=== PATIENT | male | born 1970 | race Caucasian/White ===

== ENCOUNTER 2023-04-09 19:44 | Emergency (ER) | payer OTHER, SELFPAY ==
[2023-04-09 19:56] VITALS: BP 102/62; PULSE 59; RESP 16; TEMP 36.8; O2SAT 94; BMI 39.9
--- NOTE | 2023-04-09 20:29 | ED.LOWEXIN ---
HPI - Extremity Injury (Lower) General Date Seen: 04/09/23 Chief Complaint: Extremity Pain/Injury, Lower Stated Complaint: lukemia, has on open wound on leg Time Seen by Provider: 04/09/23 19:57 Source: patient and family Mode of arrival: ambulatory Limitations: no limitations History of Present Illness HPI Narrative: Patient is a very nice 53-year-old gentleman is being treated for acute myelogenous leukemia. He banged his right silver approximately 2 weeks ago and they were putting a dressing on there, he has noted the last 24-48 hours that thing redness has increased he has no pain with the, denies any fevers chills but is worried about infection, he is on Bactrim Monday and also acyclovir. For prophylaxis. Related Data Home Medications Medication Instructions Recorded Confirmed acyclovir 400 mg tablet 400 mg PO 04/09/23 albuterol sulfate 2.5 mg/3 mL 1 Q6H 04/09/23 (0.083 %) solution for nebulization carvedilol 12.5 mg tablet 12.5 mg PO BID 04/09/23 04/09/23 dapagliflozin propanediol 10 mg 10 mg PO DAILY 04/09/23 04/09/23 tablet (Farxiga) furosemide 40 mg tablet 40 mg PO BID 04/09/23 04/09/23 lidocaine-prilocaine 2.5 %-2.5 % 5 g topical 04/09/23 topical cream nitroglycerin 0.4 mg sublingual mg sublingual 04/09/23 tablet ondansetron 8 mg disintegrating 8 mg PO Q8H PRN nausea/vomiting 04/09/23 04/09/23 tablet rosuvastatin 20 mg tablet 20 mg PO QPM 04/09/23 04/09/23 sacubitril 97 mg-valsartan 103 mg 1 tab PO BID 04/09/23 04/09/23 tablet (Entresto) spironolactone 25 mg tablet 25 mg PO DAILY 04/09/23 04/09/23 sulfamethoxazole 800 1 tab PO 04/09/23 mg-trimethoprim 160 mg tablet triamcinolone acetonide 0.1 % applic topical 3XD PRN 04/09/23 topical cream venetoclax 100 mg tablet PO 04/09/23 (Venclexta) voriconazole 200 mg tablet 200 mg PO BID 04/09/23 04/09/23 Allergies Allergy/AdvReac Type Severity Reaction Status Date / Time No Known Drug Allergies Allergy Verified 04/09/23 20:04 Review of Systems Status of ROS: Reports: 10 or more systems reviewed and unremarkable except as noted in History and below [facility] Social History Smoking Status: Never smoker Do you use any of these nicotine containing products: None How often do you have a drink containing alcohol: never How often do you have six or more drinks on one occasion: Never AUDIT-C Alcohol total score: 0 Non-prescribed substance use: denies use Exam Narrative: Exam Narrative: On examination is right silver shows an erythematous area, outside of where [place] is [place] on his tibia. There is no bleeding, there is a little bit of oozing. The whole area is approximately 6-7 cm circular, with an overlying area redness. No tenderness is noted, calf shows no tenderness to palpation and there is no edema normal pulses are noted in his DP and posterior tibial. I do not suspect a foreign body in either fracture as he is walking on it. Const: Vital Signs, click to edit/add: Vital Signs - 24 hr 04/09/23 19:56 Temperature 98.3 F Pulse Rate [Right Pulse Oximeter] 59 L Respiratory Rate 16 Blood Pressure [Ri ght Upper Arm] 102/62 Pulse Oximetry 94 Oxygen Delivery Me thod Room Air Documenting provider has reviewed patient's vital signs: yes Course Course ED Course: I think it would be reasonable to cover him for cellulitis here. He will continue using Polysporin ointment, and a non adherent dressing, we will put him on Keflex 3 times a day, and have him hold his Bactrim at this point. Vital Signs Vital signs: Initial Vital Signs Temperature 98.3 F 04/09/23 19:56 Temperature Source Oral 04/09/23 19:56 Pulse Rate 59 L 04/09/23 19:56 Respiratory Rate 16 04/09/23 19:56 Blood Pressure 102/62 04/09/23 19:56 Blood Pressure Mean 75 04/09/23 19:56 Blood Pressure Position Sitting 04/09/23 19:56 Pulse Oximetry 94 04/09/23 19:56 Oxygen Delivery Method Room Air 04/09/23 19:56 Vital Signs Temperature 98.3 F 04/09/23 19:56 Pulse Rate 59 L 04/09/23 19:56 Respiratory Rate 16 04/09/23 19:56 Blood Pressure 102/62 04/09/23 19:56 Pulse Oximetry 94 04/09/23 19:56 Oxygen Delivery Method Room Air 04/09/23 19:56 Temperature 98.3 F 04/09/23 19:56 Pulse Rate 59 L 04/09/23 19:56 Respiratory Rate 16 04/09/23 19:56 Blood Pressure 102/62 04/09/23 19:56 Pulse Oximetry 94 04/09/23 19:56 Oxygen Delivery Method Room Air 04/09/23 19:56 Discharge Plan Discharge Clinical Impression: Cellulitis Patient Disposition: Home w/ Parent or Adult Condition: Stable Instructions: Cellulitis (ED) Additional Instructions: home,rest and continue with polysporin and the non adherent dressing. Start the keflex, hold the bactrim while on it. Activity Level: Light activity Prescriptions: No Action furosemide 40 mg tablet 40 mg PO BID carvedilol 12.5 mg tablet 12.5 mg PO BID albuterol sulfate 2.5 mg /3 mL (0.083 %) solution for nebulization 1 Q6H acyclovir 400 mg tablet 400 mg PO sulfamethoxazole-trimethoprim 800-160 mg tablet 1 tab PO triamcinolone acetonide 0.1 % cream topical 3XD PRN spironolactone 25 mg tablet 25 mg PO DAILY ondansetron 8 mg tablet,disintegrating 8 mg PO Q8H PRN (Reason: nausea/vomiting) lidocaine-prilocaine 2.5-2.5 % cream 5 g topical nitroglycerin 0.4 mg tablet, sublingual sublingual voriconazole 200 mg tablet 200 mg PO BID rosuvastatin 20 mg tablet 20 mg PO QPM Farxiga 10 mg tablet 10 mg PO DAILY Entresto 97-103 mg tablet 1 tab PO BID Venclexta 100 mg tablet PO Stand Alone Forms: MyHealth Info Instructions
== END 2023-04-09 20:55 | disposition home or self-care (01) ==
LOC: ED 20:52
PROVIDERS: Emergency Provider Family Medicine
DX: L03.115 Cellulitis of right lower limb (principal)
CPT/HCPCS: 99283